=== PATIENT | female | born 1995 | race Caucasian/White ===

== ENCOUNTER 2021-06-02 16:58 | Outpatient (CLI) | payer MEDICAID ==
[~2021-06-02] VITALS: Ht 172.7 cm; Wt 84.1 kg
[~2021-06-02 16:58] MED LIST: CEPH-368 PO; PREN-1 PO
[2021-06-02] MEDS ORDERED: BUPR300T49 PO (17:05)
[2021-06-02] MEDS ORDERED: ESCI10TA10 PO (17:05)
[2021-06-02] MEDS ORDERED: LAMO200T49 PO (17:06)
[2021-06-02 17:17] VITALS: BP 114/66
== END 2021-06-02 18:28 | disposition home or self-care (01) ==
LOC: LDOP 16:58
PROVIDERS: ATTEND Obstetrics & Gynecology
DX: O36.8130 Decreased fetal movements, third trimester, not applicable or unspecified (principal); Z3A.31 31 weeks gestation of pregnancy
CPT/HCPCS: 59025

== ENCOUNTER 2021-07-11 15:31 | Inpatient (IN) | payer MEDICAID ==
[~2021-07-11] VITALS: Ht 172.7 cm; Wt 89.3 kg
[~2021-07-11 15:31] MED LIST changes: +BUPR300T49 PO; +ESCI10TA10 PO; +LAMO200T49 PO
[2021-07-11 15:54] VITALS: BP 122/70
[2021-07-11] MEDS ORDERED: BETAMETHASONE 6 MG/ML, 5ML IM ONE (17:20)
[2021-07-11] MEDS ORDERED: LACTATED RINGERS 1,000 ML IV PRN (17:30)
[2021-07-11] MEDS ORDERED: INSULIN LISPRO 100 UNIT/ML, 3ML VIAL SQ-INSULIN ONE (18:30)
[2021-07-11 18:47] LABS: BASOPHILS % (AUTO) 1 % (0-1); EOSINOPHILS % (AUTO) 1 % (1-7); LYMPHOCYTES % (AUTO) 14 % (22-44); MEAN CORPUSCULAR HEMOGLOBIN 25.5 pg (27.0-34.8); MEAN CORPUSCULAR HGB CONC 32.8 g/dL (32.4-35.8); MEAN PLATELET VOLUME 8.4 fL (7.4-10.4); MONOCYTES % (AUTO) 4 % (2-9); NEUTROPHILS % (AUTO) 80 % (42-75); PLATELET COUNT 353 x10^3/uL (130-400); RED BLOOD COUNT 4.54 x10^6/uL (3.82-5.3); RED CELL DISTRIBUTION WIDTH 19.2 % (9.6-15.2)
[2021-07-11] MEDS: ESCITALOPRAM 10MG TABLET PO SCH (21:24)
[2021-07-11] MEDS: LAMOTRIGINE 200 MG TABLET PO SCH (21:24)
[2021-07-11] MEDS ORDERED: DIPHENHYDRAMINE 50 MG CAPSULE PO PRN (23:30)
[2021-07-11] MEDS: DIPHENHYDRAMINE 25 MG CAPSULE PO PRN (23:50)
[2021-07-12] MEDS: DOCUSATE 100 MG CAPSULE PO SCH ×3 (08:55→20:59)
[2021-07-12] MEDS: PRENATAL VIT/IRON/FA 1 EACH TABLET PO SCH (08:55)
[2021-07-12] MEDS: LAMOTRIGINE 200 MG TABLET PO SCH ×2 (08:57→21:00)
[2021-07-12] MEDS: BUPROPION SR 100 MG TABLET PO SCH (08:57)
[2021-07-12] MEDS: SODIUM CHLORIDE FLUSH 3ML SYRINGE IVF SCH ×2 (09:00→21:00)
[2021-07-12] MEDS: ACETAMINOPHEN 325 MG TABLET PO PRN (15:55)
[2021-07-12] MEDS ORDERED: ACETAMINOPHEN 100 ML IVPB ONE (16:00)
[2021-07-12] MEDS ORDERED: BETAMETHASONE 6 MG/ML, 5ML IM SCH (17:00)
[2021-07-12] MEDS ORDERED: BETAMETHASONE 6 MG/ML, 5ML IM ONE (18:00)
[2021-07-12] MEDS: ESCITALOPRAM 10MG TABLET PO SCH (21:00)
[2021-07-12] MEDS: DIPHENHYDRAMINE 25 MG CAPSULE PO PRN (21:04)
[2021-07-13] MEDS: BUPROPION SR 100 MG TABLET PO SCH (09:30)
[2021-07-13] MEDS: LAMOTRIGINE 200 MG TABLET PO SCH ×2 (09:30→20:52)
[2021-07-13] MEDS: PRENATAL VIT/IRON/FA 1 EACH TABLET PO SCH (09:30)
[2021-07-13] MEDS ORDERED: NEWBORN KIT ONE (16:46)
[2021-07-13 20:45] VITALS: BP 120/57
[2021-07-13] MEDS: ESCITALOPRAM 10MG TABLET PO SCH (20:52)
[2021-07-13] MEDS: DOCUSATE 100 MG CAPSULE PO SCH (20:52)
[2021-07-13] MEDS: SODIUM CHLORIDE FLUSH 3ML SYRINGE IVF SCH (20:56)
[2021-07-13] MEDS: DIPHENHYDRAMINE 25 MG CAPSULE PO PRN (20:56)
[2021-07-14] MEDS: PRENATAL VIT/IRON/FA 1 EACH TABLET PO SCH (08:01)
[2021-07-14] MEDS: DOCUSATE 100 MG CAPSULE PO SCH ×3 (08:01→21:00)
[2021-07-14] MEDS: LAMOTRIGINE 200 MG TABLET PO SCH ×2 (08:02→21:36)
[2021-07-14] MEDS: BUPROPION SR 100 MG TABLET PO SCH (08:03)
[2021-07-14] MEDS: SODIUM CHLORIDE FLUSH 3ML SYRINGE IVF SCH ×3 (09:00→21:37)
[2021-07-14] MEDS: ACETAMINOPHEN 325 MG TABLET PO PRN (11:09)
[2021-07-14] MEDS ORDERED: NEWBORN KIT ONE (13:11)
[2021-07-14] MEDS: DIPHENHYDRAMINE 25 MG CAPSULE PO PRN (21:34)
[2021-07-14] MEDS: ESCITALOPRAM 10MG TABLET PO SCH (23:02)
[2021-07-15] MEDS ORDERED: NEWBORN KIT ONE (01:34)
[2021-07-15] MEDS: BUPROPION SR 100 MG TABLET PO SCH (08:00)
[2021-07-15] MEDS ORDERED: METOCLOPRAMIDE 5 MG/ML, 2ML IV ONE (08:00)
[2021-07-15] MEDS: LAMOTRIGINE 200 MG TABLET PO SCH ×2 (08:00→21:15)
[2021-07-15] MEDS ORDERED: SODIUM CITRATE/CITRIC ACID 30 ML UDC PO ONE (08:00)
[2021-07-15] MEDS ORDERED: LACTATED RINGERS 1,000 ML IVBOLUS ONE (08:00)
[2021-07-15 08:01] LABS: BASOPHILS % (AUTO) 1 % (0-1); EOSINOPHILS % (AUTO) 1 % (1-7); LYMPHOCYTES % (AUTO) 16 % (22-44); MEAN CORPUSCULAR HEMOGLOBIN 25.4 pg (27.0-34.8); MEAN CORPUSCULAR HGB CONC 32.6 g/dL (32.4-35.8); MEAN PLATELET VOLUME 8.1 fL (7.4-10.4); MONOCYTES % (AUTO) 5 % (2-9); NEUTROPHILS % (AUTO) 77 % (42-75); PLATELET COUNT 343 x10^3/uL (130-400); RED BLOOD COUNT 4.59 x10^6/uL (3.82-5.3); RED CELL DISTRIBUTION WIDTH 19.4 % (9.6-15.2)
[2021-07-15] MEDS: PRENATAL VIT/IRON/FA 1 EACH TABLET PO SCH (08:02)
[2021-07-15] MEDS: DOCUSATE 100 MG CAPSULE PO SCH ×2 (08:03→21:15)
[2021-07-15] MEDS: SODIUM CHLORIDE FLUSH 3ML SYRINGE IVF SCH ×2 (10:18→21:00)
[2021-07-15] MEDS ORDERED: SODIUM CITRATE/CITRIC ACID 15 ML UDC ONE (10:41)
[2021-07-15] MEDS ORDERED: FENTANYL PF 100 MCG/2ML ONE (11:40)
[2021-07-15] MEDS ORDERED: OXYTOCIN 10 UNITS/ML, 1ML ONE (11:40)
[2021-07-15] MEDS ORDERED: PHENYLEPHRINE 10 MG/ML ONE (11:40)
[2021-07-15] MEDS ORDERED: DEXAMETHASONE 4 MG/ML, 1ML ONE (11:40)
[2021-07-15] MEDS ORDERED: CEFAZOLIN 1,000 MG ONE (11:40)
[2021-07-15] MEDS ORDERED: EPHEDRINE 50 MG/ML, 1ML ONE (11:40)
[2021-07-15] MEDS ORDERED: ONDANSETRON 2MG/ML, 2ML ONE (11:40)
[2021-07-15] MEDS ORDERED: KETOROLAC 30 MG/1 ML ONE (11:40)
[2021-07-15] MEDS ORDERED: hydrALAzine 20 MG/ML, 1ML IV PRN (12:00)
[2021-07-15] MEDS ORDERED: OXYcodone 5 MG/5 ML ORAL.SOL UDC PO PRN (12:00)
[2021-07-15] MEDS ORDERED: HYDROmorphone 2 MG/ML, 1ML IVPush PRN (12:00)
[2021-07-15] MEDS ORDERED: morphine SULFATE 10 MG/ML, 1ML IV PRN (12:00)
[2021-07-15] MEDS ORDERED: FENTANYL PF 100 MCG/2ML IV PRN (12:00)
[2021-07-15] MEDS ORDERED: HYDROcodone/APAP 7.5-325MG/15ML UDC PO PRN (12:00)
[2021-07-15] MEDS ORDERED: ALBUTEROL SULFATE 2.5 MG/3 ML NPPB PRN (12:00)
[2021-07-15] MEDS ORDERED: METOPROLOL 1 MG/ML, 5ML IV PRN (12:00)
[2021-07-15] MEDS ORDERED: LABETALOL 5MG/ML, 20ML IV PRN (12:00)
[2021-07-15] MEDS ORDERED: EPHEDRINE 50 MG/ML, 1ML IVPush PRN (12:00)
[2021-07-15] MEDS ORDERED: ONDANSETRON 2MG/ML, 2ML IVPush PRN (12:00)
[2021-07-15] MEDS ORDERED: MIDAZOLAM 1 MG/ML, 2ML IV PRN (12:00)
[2021-07-15] MEDS ORDERED: MISOPROSTOL 200 MCG TABLET ONE (12:08)
[2021-07-15] MEDS ORDERED: HYDROmorphone 2 MG/ML, 1ML ONE (12:14)
[2021-07-15] MEDS ORDERED: DOCUSATE 100 MG CAPSULE PO PRN ×2 (14:00→20:00)
[2021-07-15] MEDS ORDERED: OXYcodone/APAP 5/325MG TABLET PO PRN ×3 (14:00→20:00)
[2021-07-15] MEDS ORDERED: MISOPROSTOL 200 MCG TABLET PR PRN ×2 (14:00→20:00)
[2021-07-15] MEDS ORDERED: LACTATED RINGERS 1,000 ML IV SCH ×2 (14:00)
[2021-07-15] MEDS ORDERED: morphine SULFATE 10 MG/ML, 1ML IM PRN ×2 (14:00→20:00)
[2021-07-15] MEDS ORDERED: OXYTOCIN 30U/ 0.9% NaCL 500ML 500 ML IV SCH (14:00)
[2021-07-15] MEDS ORDERED: KETOROLAC 30 MG/1 ML IV SCH (14:00)
[2021-07-15] MEDS ORDERED: MORPHINE SULFATE 4 MG/ML, 1ML IVPush PRN (14:00)
[2021-07-15] MEDS ORDERED: SIMETHICONE 80 MG CHEW TAB PO PRN ×2 (14:00→20:00)
[2021-07-15] MEDS ORDERED: DEXTROSE 47%, 15GM GEL ONE (15:02)
[2021-07-15 17:10] VITALS: BP 124/70
[2021-07-15] MEDS ORDERED: OXYcodone/APAP 5/325MG TABLET ONE (18:57)
[2021-07-15] MEDS: KETOROLAC 30 MG/1 ML IV SCH (19:43)
[2021-07-15] MEDS: LACTATED RINGERS 1,000 ML IV SCH ×2 (20:00)
[2021-07-15] MEDS ORDERED: DIPHENHYDRAMINE 25 MG CAPSULE PO PRN (20:00)
[2021-07-15] MEDS: OXYTOCIN 30U/ 0.9% NaCL 500ML 500 ML IV SCH (20:00)
[2021-07-15] MEDS ORDERED: ACETAMINOPHEN 325 MG TABLET PO PRN (20:00)
[2021-07-15 20:03] VITALS: BP 114/62
[2021-07-15 21:08] LABS: BASOPHILS % (AUTO) 1 % (0-1); EOSINOPHILS % (AUTO) 0 % (1-7); LYMPHOCYTES % (AUTO) 9 % (22-44); MEAN CORPUSCULAR HEMOGLOBIN 25.4 pg (27.0-34.8); MEAN CORPUSCULAR HGB CONC 32.5 g/dL (32.4-35.8); MEAN PLATELET VOLUME 8.2 fL (7.4-10.4); MONOCYTES % (AUTO) 4 % (2-9); NEUTROPHILS % (AUTO) 86 % (42-75); PLATELET COUNT 335 x10^3/uL (130-400); RED BLOOD COUNT 4.05 x10^6/uL (3.82-5.3); RED CELL DISTRIBUTION WIDTH 19.2 % (9.6-15.2)
[2021-07-15] MEDS: ESCITALOPRAM 10MG TABLET PO SCH (21:15)
[2021-07-15 23:10] VITALS: BP 100/63
[2021-07-15] MEDS: OXYcodone/APAP 5/325MG TABLET PO PRN (23:13)
[2021-07-16] MEDS: KETOROLAC 30 MG/1 ML IV SCH ×2 (01:42→07:52)
[2021-07-16] MEDS: LACTATED RINGERS 1,000 ML IV SCH ×5 (03:26→20:00)
[2021-07-16] MEDS: OXYTOCIN 30U/ 0.9% NaCL 500ML 500 ML IV SCH ×2 (03:27→16:00)
[2021-07-16] MEDS: OXYcodone/APAP 5/325MG TABLET PO PRN ×5 (03:33→21:55)
[2021-07-16 03:40] VITALS: BP 95/61
[2021-07-16] MEDS: DOCUSATE 100 MG CAPSULE PO SCH ×2 (07:51→21:54)
[2021-07-16] MEDS: SODIUM CHLORIDE FLUSH 3ML SYRINGE IVF SCH ×2 (07:52→21:00)
[2021-07-16] MEDS: LAMOTRIGINE 200 MG TABLET PO SCH ×2 (07:52→22:54)
[2021-07-16] MEDS: BUPROPION SR 100 MG TABLET PO SCH (07:52)
[2021-07-16 08:05] VITALS: BP 108/71
[2021-07-16] MEDS: PRENATAL VIT/IRON/FA 1 EACH TABLET PO SCH (08:06)
[2021-07-16] MEDS ORDERED: PRENATAL VIT/IRON/FA 1 EACH TABLET PO SCH (09:00)
[2021-07-16] MEDS: MORPHINE SULFATE 4 MG/ML, 1ML IVPush PRN ×3 (09:08→16:19)
[2021-07-16 12:27] VITALS: BP 104/63
[2021-07-16] MEDS ORDERED: IBUPROFEN 600 MG TABLET PO PRN (14:00)
[2021-07-16] MEDS: IBUPROFEN 600 MG TABLET PO PRN (17:54)
[2021-07-16 21:00] VITALS: BP 100/65
[2021-07-16] MEDS ORDERED: MEPERIDINE/PF 50 MG/ML IM ONE (22:30)
[2021-07-16] MEDS: ESCITALOPRAM 10MG TABLET PO SCH (22:54)
[2021-07-17] MEDS: IBUPROFEN 600 MG TABLET PO PRN (00:12)
[2021-07-17] MEDS: LACTATED RINGERS 1,000 ML IV SCH ×6 (02:00→22:00)
[2021-07-17] MEDS: OXYTOCIN 30U/ 0.9% NaCL 500ML 500 ML IV SCH ×3 (02:00→22:00)
[2021-07-17] MEDS: IBUPROFEN 600 MG TABLET PO SCH ×3 (06:19→18:11)
[2021-07-17] MEDS: OXYcodone/APAP 5/325MG TABLET PO PRN ×4 (06:43→19:43)
[2021-07-17] MEDS: SODIUM CHLORIDE FLUSH 3ML SYRINGE IVF SCH (09:00)
[2021-07-17] MEDS: DOCUSATE 100 MG CAPSULE PO SCH ×2 (09:30→19:43)
[2021-07-17] MEDS: BUPROPION SR 100 MG TABLET PO SCH (09:30)
[2021-07-17] MEDS: LAMOTRIGINE 200 MG TABLET PO SCH ×2 (09:31→21:37)
[2021-07-17] MEDS: PRENATAL VIT/IRON/FA 1 EACH TABLET PO SCH (09:31)
[2021-07-17 09:59] VITALS: BP 109/67
[2021-07-17 12:38] VITALS: BP 114/72
[2021-07-17 19:55] VITALS: BP 111/66
[2021-07-17] MEDS: ESCITALOPRAM 10MG TABLET PO SCH (21:38)
[2021-07-18] MEDS: IBUPROFEN 600 MG TABLET PO SCH ×4 (00:12→19:11)
[2021-07-18] MEDS: OXYcodone/APAP 5/325MG TABLET PO PRN ×6 (00:12→23:08)
[2021-07-18] MEDS: LACTATED RINGERS 1,000 ML IV SCH ×5 (04:00→20:00)
[2021-07-18 07:45] VITALS: BP 100/61
[2021-07-18] MEDS: OXYTOCIN 30U/ 0.9% NaCL 500ML 500 ML IV SCH ×2 (08:00→18:00)
[2021-07-18] MEDS: DOCUSATE 100 MG CAPSULE PO SCH ×2 (09:46→21:01)
[2021-07-18] MEDS: LAMOTRIGINE 200 MG TABLET PO SCH ×2 (09:46→21:01)
[2021-07-18] MEDS: BUPROPION SR 100 MG TABLET PO SCH (09:47)
[2021-07-18] MEDS: PRENATAL VIT/IRON/FA 1 EACH TABLET PO SCH (09:47)
[2021-07-18 19:15] VITALS: BP 125/74
[2021-07-18] MEDS: ESCITALOPRAM 10MG TABLET PO SCH (21:01)
[2021-07-19] MEDS: IBUPROFEN 600 MG TABLET PO SCH ×2 (01:10→07:03)
[2021-07-19] MEDS: OXYTOCIN 30U/ 0.9% NaCL 500ML 500 ML IV SCH (04:00)
[2021-07-19] MEDS: LACTATED RINGERS 1,000 ML IV SCH ×2 (04:00)
[2021-07-19] MEDS ORDERED: OXYC1TAB14 PO (06:34)
[2021-07-19] MEDS ORDERED: IBUP-1222 PO (06:34)
[2021-07-19] MEDS: OXYcodone/APAP 5/325MG TABLET PO PRN ×2 (07:03→11:33)
[2021-07-19] MEDS: PRENATAL VIT/IRON/FA 1 EACH TABLET PO SCH (09:35)
[2021-07-19] MEDS: DOCUSATE 100 MG CAPSULE PO SCH (09:35)
[2021-07-19] MEDS: LAMOTRIGINE 200 MG TABLET PO SCH (09:36)
[2021-07-19] MEDS: BUPROPION SR 100 MG TABLET PO SCH (09:36)
[2021-07-19 09:40] VITALS: BP 120/75
== END 2021-07-19 13:00 | disposition home or self-care (01) | DRG 787 ==
LOC: LDOP 15:31 → 2NE 17:10 → LDIP 18:12 → UNDODISIN 07-15 16:45 → 2NW 07-15 16:54
PROVIDERS: ADMIT Obstetrics & Gynecology; ATTEND Obstetrics & Gynecology
PROC: 10D00Z1 Extraction of Products of Conception, Low, Open Approach (ICD-10-PCS; principal; 2021-07-15)
DX: O40.3XX0 Polyhydramnios, third trimester, not applicable or unspecified (principal); O72.2 Delayed and secondary postpartum hemorrhage; O99.344 Other mental disorders complicating childbirth; O99.284 Endocrine, nutritional and metabolic diseases complicating childbirth; O99.02 Anemia complicating childbirth; O76 Abnormality in fetal heart rate and rhythm complicating labor and delivery; O24.420 Gestational diabetes mellitus in childbirth, diet controlled; F31.9 Bipolar disorder, unspecified; Z20.822 Contact with and (suspected) exposure to COVID-19; Z37.0 Single live birth; Z3A.37 37 weeks gestation of pregnancy; Z79.899 Other long term (current) drug therapy
CPT/HCPCS: 36415; 82962; 85025; 85461; 86592; 86850; 86900; 87635; G0378; J0690; J0702; J1100; J1170; J1885; J2175; J2405; J2790; J3010; J2270; J2370; J2590; J2765; J7120; Q0163